=== PATIENT | female | born 1935 | race Caucasian/White ===

== ENCOUNTER 2019-05-24 15:50 | Emergency (ER) | payer MEDICARE, OTHER ==
[~2019-05-24] VITALS: Ht 160 cm; Wt 65.8 kg
--- OUTSIDE RECORDS SUMMARY | ~2019-05-24 | XMS | Clinical Summary ---
Demographics + + + | Address | [address] [place] [address] | | | [place] [address] | + + + | Home Phone | | + + + | Preferred Language | Unknown | + + + | Marital Status | | + + + | Mormon Affiliation | 1077 | + + + | Race | Unknown | + + + | Ethnic Group | Unknown | + + + Author + + + | Author | [facility] | | | and [place] | + + + | Organization | [facility] | | | and [place] | + + + | Address | Unknown | + + + | Phone | Unavailable | + + + Support + + +---------+ + | Name | Relationship | Address | Phone | + + +---------+ + | ABRAHAN NICHOLAS ECON | Unknown | | + + +---------+ + Care Team Providers + +------+ + | Care Field Cane Scaler Helper Name | Role | Phone | + +------+ + PCP | Unavailable | + +------+ + Allergies Not on File Medications Not on file Active Problems Not on file Social History + +-------+ +--------+------+ | Tobacco Use | Types | Packs/Day | Years | Date | | | | | Used | | + +-------+ +--------+------+ | Never Assessed | | | | | + +-------+ +--------+------+ + + + | Sex Assigned at | Date Recorded | | | | + + + | Not on file | | + + + + + + + | Job Start Date | Occupation | Industry | + + + + | Not on file | Not on file | Not on file | + + + + + + + + | Travel History | Travel Start | Travel End | + + + + + + | No recent travel history available. | + + Last Filed Vital Signs Not on file Plan of Treatment + + + + + | Health Maintenance | Due Date | Last Done | Comments | + + + + + | Vaccine: | | | | | Dtap/Tdap/Td (1 - | 5 | | | | Tdap) | | | | + + + + + | Vaccine: Zoster (1 | | | | | of 2) | 6 | | | + + + + + | Vaccine: | | | | | Pneumococcal 65+ | 1 | | | | Low/Medium Risk (1 | | | | | of 2 - PCV13) | | | | + + + + + | Vaccine: Influenza | | | | | (#1) | 9 | | | + + + + + Results Not on filefrom Last 3 Months"
--- OUTSIDE RECORDS SUMMARY | ~2019-05-24 | XMS | Clinical Summary ---
Demographics + + + | Address | [address] [place] [address] | | | [place] [address] | + + + | Home Phone | | + + + | Preferred Language | Unknown | + + + | Marital Status | | + + + | Muslim Affiliation | 1077 | + + + | Race | Unknown | + + + | Ethnic Group | Unknown | + + + Author + + + | Author | Located Within [facility] | | | and [place] | + + + | Organization | Located [facility] | | | and [...] Team Providers + +------+ + | Care Link Fabric Machine Operator Name | Role | Phone | + [...]
[2019-05-24] MEDS ORDERED: LOSARTAN-HCTZ1 EAC1 PO (16:02)
== END 2019-05-24 18:23 | disposition home or self-care (01) ==
LOC: ED 15:50
DX: S01.511A Laceration without foreign body of lip, initial encounter (principal); W01.198A Fall on same level from slipping, tripping and stumbling with subsequent striking against other object, initial encounter; I10 Essential (primary) hypertension; Z88.2 Allergy status to sulfonamides; Z88.8 Allergy status to other drugs, medicaments and biological substances; Z79.899 Other long term (current) drug therapy
CPT/HCPCS: 40650; 90471; 90715; 99283-25

== ENCOUNTER 2024-09-24 11:46 | Emergency (ER) | payer MEDICARE, OTHER ==
[~2024-09-24] VITALS: Ht 160 cm; Wt 71.7 kg
[~2024-09-24 11:46] MED LIST: LOSARTAN-HCTZ1 EAC1 PO
[2024-09-24] MEDS ORDERED: LOSARTAN-HCTZ1 EAC2 PO (12:01)
[2024-09-24] MEDS ORDERED: PRILOSEC OTC20 MG PO (12:02)
[2024-09-24] MEDS ORDERED: MAGNESIUM100 MG PO (12:02)
[2024-09-24] MEDS ORDERED: VISION PLUS LU1 EACH PO (12:02)
[2024-09-24] MEDS ORDERED: ACETAMINOPHEN 500 MG TAB PO ONE (12:15)
[2024-09-24 14:05] VITALS: BP 176/78
== END 2024-09-24 14:05 | disposition home or self-care (01) ==
LOC: ED 11:46
DX: S82.831A Other fracture of upper and lower end of right fibula, initial encounter for closed fracture (principal); S83.91XA Sprain of unspecified site of right knee, initial encounter; I10 Essential (primary) hypertension; Z88.2 Allergy status to sulfonamides; Z88.1 Allergy status to other antibiotic agents; Z79.899 Other long term (current) drug therapy; W18.30XA Fall on same level, unspecified, initial encounter
CPT/HCPCS: 73560; 73610; 99283; A9270